=== PATIENT | female | born 1945 | race Caucasian/White ===

== ENCOUNTER → 2016-12-01 | Outpatient (CLI) | payer MEDICARE, OTHER ==
[~2016-12-01] MED LIST: BIOTIN1000 MCG PO; CALCIUM 600 + V1 TAB PO; FISH OIL PO; VITAMIN D2000 IU PO
== END | disposition home or self-care (01) ==
LOC: MAMMO 10:57
DX: Z12.31 Encounter for screening mammogram for malignant neoplasm of breast (principal)